=== PATIENT | female | born 1970 ===

== ENCOUNTER 2017-05-16 15:23 | Emergency (ER) | payer MEDICAID ==
[2017-05-16 15:29] VITALS: BP 128/85; PULSE 66; RESP 20; TEMP 97.7; O2SAT 99
[2017-05-16] MEDS ORDERED: Sodium Chloride 0.9% 1,000 ML IV STA ×2 (15:49→20:30)
--- NOTE | 2017-05-16 15:58 | ED PDOC ---
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 She did not pass out. Tried to go to the bathroom, but no improvement. She then called the ambulance. Feels better currently with only mild dizziness. No chest pain, palpitations. No numbness. No weakness anywhere. Has had similar in the past and saw pcp for it with no findings. Past Medical History Reviewed: Nursing Documentation, Vital Signs Vital Signs: Last Vital Signs Temp 97.7 F 05/16/17 15:25 Pulse 66 05/16/17 15:25 Resp 20 05/16/17 15:25 BP 128/85 05/16/17 15:25 Pulse Ox 99 05/16/17 15:25 - Medical History PMH: No Chronic Diseases - Surgical History Surgical History: No Surg Hx - Family History Family History: States: Unknown Family Hx - Living Arrangements Living Arrangements: With Family - Social History Current smoker - smoking cessation education provided: No Alcohol: None Drugs: Denies - Home Medications Home Medications: Ambulatory Orders Medication Instructions Recorded Azithromycin [Zithromax Z-Kam] 250 mg PO DAILY #5 tab 06/16/15 Ibuprofen [Motrin] 600 mg PO Q8 #30 tab 06/16/15 Oxycodone HCl/Acetaminophen 1 tab PO Q6 PRN #10 tab 06/16/15 [Percocet 325 mg-5 mg] Dicyclomine [Dicyclomine HCl] 10 mg PO TID PRN #9 cap 09/05/15 Loperamide [Loperamide HCl] 2 mg PO QID PRN #12 cap 09/05/15 Ondansetron [Zofran] 4 mg PO Q6H PRN #10 tab 09/05/15 Ranitidine HCl [Zantac 150] 150 mg PO BID #20 tab 09/05/15 - Allergies Allergies/Adverse Reactions: Allergies Allergy/AdvReac Type Severity Reaction Status Date / Time No Known Allergies Allergy Verified 06/16/15 19:25 Review of Systems ROS Statement: Except As Marked, All Systems Reviewed And Found Negative Respiratory: Positive for: Shortness of Breath Neurological: Positive for: Dizziness Physical Exam - Reviewed Nursing Documentation Reviewed: Yes Vital Signs Reviewed: Yes - Physical Exam Appears: Positive for: Non-toxic, No Acute Distress Head Exam: Positive for: ATRAUMATIC, NORMAL INSPECTION, NORMOCEPHALIC Skin: Positive for: Normal Color, Warm, DRY Eye Exam: Positive for: EOMI, Normal appearance, PERRL ENT: Positive for: Normal ENT Inspection Neck: Positive for: Normal, Painless ROM Cardiovascular/Chest: Positive for: Regular Rate, Rhythm Respiratory: Positive for: CNT, Normal Breath Sounds Gastrointestinal/Abdominal: Positive for: Normal Exam, Bowel Sounds, Soft. Negative for: Tenderness Back: Positive for: Normal Inspection. Negative for: L CVA Tenderness, R CVA Tenderness Extremity: Positive for: Normal ROM. 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 Negative for: Motor/Sensory Deficits, Aphasia, Facial Droop - ECG O2 Sat by Pulse Oximetry: 99 Pulse Ox Interpretation: Normal - Progress ED Course And Treament: 1625: Dr. Morin to take over care. FU on labs and imaging. Disposition - Clinical Impression Clinical Impression: Near syncope - Patient ED Disposition Is Patient to be Admitted: Transfer of Care - Disposition Disposition Time: 16:25 Condition: STABLE Patient Signed Over To: Corin Morin
[2017-05-16 16:32] LABS: BASO % 0.3 % (0.0-2.0); EOS # 0.2 K/uL (0.0-0.7); EOS % 1.7 % (0.0-4.0); HEMATOCRIT 43.6 % (34.0-47.0); LYMPH # 1.7 K/uL (1.0-4.3); LYMPH % 14.9 % (20.0-40.0); MEAN CELL VOLUME 89.1 fl (81.0-99.0); MEAN CORPUSCULAR HEMOGLOBIN 28.7 pg (27.0-31.0); MEAN CORPUSCULAR HGB CONC 32.2 g/dL (33.0-37.0); MEAN PLATELET VOLUME 8.5 fl (7.2-11.7); MONO # 0.6 K/uL (0.0-0.8); MONO % 5.2 % (0.0-10.0); NEUT # 9.1 K/uL (1.8-7.0); NEUT % 77.9 % (50.0-75.0); RED CELL DISTRIBUTION WIDTH 13.2 % (11.5-14.5); WHITE BLOOD COUNT 11.7 K/uL (4.8-10.8)
[2017-05-16 16:47] LABS: ALB/GLOB RATIO 1.2 (1.0-2.1); ALKALINE PHOSPHATASE 73 U/L (38-126); ALT/SGPT 40 U/L (9-52); AST/SGOT 25 U/L (14-36); BILIRUBIN,TOTAL 0.4 mg/dl (0.2-1.3); BLOOD UREA NITROGEN 14 mg/dl (7-17); CARBON DIOXIDE 27 mmol/L (22-30); CHLORIDE 107 mmol/L (98-107); GFR AFRICAN-AMERICAN > 60; GLUCOSE,RANDOM 131 mg/dL (65-105); LIPASE 658 U/L (23-300); POTASSIUM 4.3 MMOL/L (3.6-5.0); SODIUM 141 mmol/l (132-148); TOTAL PROTEIN 7.3 G/DL (6.3-8.2)
[2017-05-16] MEDS ORDERED: Iohexol 300 100 ML IJ ONE (16:56)
[2017-05-16] MEDS ORDERED: Sodium Chloride 0.9% 50 ML IV ONE ×2 (16:56→20:24)
--- NOTE | 2017-05-16 17:17 | CT ---
PROCEDURE: CT HEAD WITHOUT CONTRAST. HISTORY: dizzy COMPARISON: None available. TECHNIQUE: Axial computed tomography images were obtained through the head/brain without intravenous contrast. Radiation dose: Total exam DLP = 846.83 go mGy-cm. This CT exam was performed using one or more of the following dose reduction techniques: Automated exposure control, adjustment of the mA and/or kV according to patient size, and/or use of iterative reconstruction technique. FINDINGS: HEMORRHAGE: No intracranial hemorrhage. BRAIN: No mass effect or edema. The aquino-white matter differentiation appears intact. Please note that MRI with diffusion imaging is more sensitive in the detection of acute ischemic event. VENTRICLES: No hydrocephalus. CALVARIUM: Unremarkable. PARANASAL SINUSES: Unremarkable as visualized. No significant inflammatory changes. MASTOID AIR CELLS: Unremarkable as visualized. No inflammatory changes. OTHER FINDINGS: None. IMPRESSION: No acute intracranial pathology identified.
--- NOTE | 2017-05-16 17:28 | CT ---
PROCEDURE: CT Abdomen and Pelvis with contrast HISTORY: abd pain mild elevated lipase COMPARISON: None. TECHNIQUE: Contrast dose: 95 mL Omnipaque 300 Radiation dose: Total exam DLP = 1037.76 mGy-cm. This CT exam was performed using one or more of the following dose reduction techniques: Automated exposure control, adjustment of the mA and/or kV according to patient size, and/or use of iterative reconstruction technique. FINDINGS: LOWER THORAX: Unremarkable. LIVER: Unremarkable. No gross lesion or ductal dilatation. GALLBLADDER AND BILE DUCTS: Unremarkable. PANCREAS: Unremarkable. No gross lesion or ductal dilatation. No peripancreatic fluid or edema. SPLEEN: Unremarkable. ADRENALS: Unremarkable. No mass. KIDNEYS AND URETERS: Unremarkable. No hydronephrosis. No solid mass. VASCULATURE: Unremarkable. No aortic aneurysm. BOWEL: Unremarkable. No obstruction. No gross mural thickening. APPENDIX: Normal appendix. PERITONEUM: Unremarkable. No free fluid. No free air. LYMPH NODES: Unremarkable. No enlarged lymph nodes. BLADDER: Unremarkable. REPRODUCTIVE: Unremarkable uterus. BONES: No acute fracture. OTHER FINDINGS: None. IMPRESSION: Unremarkable examination. No evidence of acute pancreatitis.
--- NOTE | 2017-05-16 18:20 | ED PDOC ---
- Laboratory Results Result Diagrams: 05/16/17 16:25 05/16/17 16:25 - ECG O2 Sat by Pulse Oximetry: 99 Medical Decision Making Medical Decision Making: Accession No. : [id number] Patient Name / ID : YASMEEN COWAN BRIANDA / [id number] Exam Date : 05/16/2017 16:47:52 ( Approved ) Study Comment : Sex / Age : F / 47Y Creator : Carine Olvera MD Dictator : Carine Olvera MD Pen Tester : Manager Of International : Carine Olvera MD Approver2 : Report Date : 05/16/2017 17:15:28 My Comment : PROCEDURE: CT HEAD WITHOUT CONTRAST. HISTORY: dizzy COMPARISON: None available. TECHNIQUE: Axial computed tomography images were obtained through the head/brain without intravenous contrast. Radiation dose: Total exam DLP = 846.83 go mGy-cm. This CT exam was performed using one or more of the following dose reduction techniques: Automated exposure control, adjustment of the mA and/or kV according to patient size, and/or use of iterative reconstruction technique. FINDINGS: HEMORRHAGE: No intracranial hemorrhage. BRAIN: No mass effect or edema. The aquino-white matter differentiation appears intact. Please note that MRI with diffusion imaging is more sensitive in the detection of acute ischemic event. VENTRICLES: No hydrocephalus. CALVARIUM: Unremarkable. PARANASAL SINUSES: Unremarkable as visualized. No significant inflammatory changes. MASTOID AIR CELLS: Unremarkable as visualized. No inflammatory changes. OTHER FINDINGS: None. IMPRESSION: No acute intracranial pathology identified. Accession No. : [id number] Patient Name / ID : YASMEEN COWAN BRIANDA / [id number] Exam Date : 05/16/2017 17:03:47 ( Approved ) Study Comment : Sex / Age : F / 47Y Creator : Eder Coleman MD Dictator : Eder Coleman MD Pen Tester : Manager Of International : Eder Coleman MD Approver2 : Report Date : 05/16/2017 17:26:56 My Comment : PROCEDURE: CT Abdomen and Pelvis with contrast HISTORY: abd pain mild elevated lipase COMPARISON: None. TECHNIQUE: Contrast dose: 95 mL Omnipaque 300 Radiation dose: Total exam DLP = 1037.76 mGy-cm. This CT exam was performed using one or more of the following dose reduction techniques: Automated exposure control, adjustment of the mA and/or kV according to patient size, and/or use of iterative reconstruction technique. FINDINGS: LOWER THORAX: Unremarkable. LIVER: Unremarkable. No gross lesion or ductal dilatation. GALLBLADDER AND BILE DUCTS: Unremarkable. PANCREAS: Unremarkable. No gross lesion or ductal dilatation. No peripancreatic fluid or edema. SPLEEN: Unremarkable. ADRENALS: Unremarkable. No mass. KIDNEYS AND URETERS: Unremarkable. No hydronephrosis. No solid mass. VASCULATURE: Unremarkable. No aortic aneurysm. BOWEL: Unremarkable. No obstruction. No gross mural thickening. APPENDIX: Normal appendix. PERITONEUM: Unremarkable. No free fluid. No free air. LYMPH NODES: Unremarkable. No enlarged lymph nodes. BLADDER: Unremarkable. REPRODUCTIVE: Unremarkable uterus. BONES: No acute fracture. OTHER FINDINGS: None. IMPRESSION: Unremarkable examination. No evidence of acute pancreatitis. Disposition - Clinical Impression Clinical Impression: Near syncope, Elevated lipase - Disposition Referrals: [facility] [Outside] Disposition: Transfer of Care (to Dr. Clay) Disposition Time: 19:00 Condition: STABLE Instructions: Near Syncope (ED) Forms: [email or web address] (Samoan) Addendum Addendum: 05/16/17 17:00 Pt signed out by Dr. Barnett pending labs and CT.
--- NOTE | 2017-05-16 19:41 | ED PDOC ---
- Laboratory Results Result Diagrams: 05/16/17 16:25 05/16/17 16:25 - ECG O2 Sat by Pulse Oximetry: 99 Medical Decision Making Medical Decision Making: Time: 1899 --Patient endorsed from Dr. Morin to me. --pending D Dimer results Time: 1845 --D-Dimer Quantitative: 6822 (H) Time: 1951 -Angio Chest PE Protocol CT Time: 2117 --Chest Ct FINDINGS: Pulmonary arteries: No pulmonary embolism. Aorta: No aneurysm. No dissection. Lungs: No consolidation. Few pulmonary nodules, up to 0.3 cm. Pleural space: No significant effusion. No pneumothorax. Heart: No cardiomegaly. No significant pericardial effusion. Bones/joints: No acute fracture. No dislocation. Soft tissues: Unremarkable. Lymph nodes: No pathologically enlarged lymph nodes. IMPRESSION: 1. No CT evidence of pulmonary embolism. 2. Pulmonary nodules. For low-risk patients, no follow-up is necessary. For high-risk patients (smoking history or other known risk factors) an optional CT at 12 months could be performed. Time: 21:46 --Patient is aware of pulmonary nodules and need for follow up. --Patient can go home as near syncope follow up with primary care doctor Patient is medically stable, and requires no further treatment in the ED at this time. Patient will be discharged home. Counseling was provided and all questions were answered regarding diagnosis and need for follow up with primary care doctor. There is agreement to discharge plan. Return if symptoms persist or worsen. Clinical Impression: Near syncope and elevated lipase Scribe Attestation: Documented by Hodan Dc, acting as a scribe for Elsy Clay MD. Provider Scribe Attestation: All medical record entries made by the Scribe were at my direction and personally dictated by me. I have reviewed the chart and agree that the record accurately reflects my personal performance of the history, physical exam, medical decision making, and the department course for this patient. I have also personally directed, reviewed, and agree with the discharge instructions and disposition. Disposition Counseled Patient/Family Regarding: Studies Performed, Diagnosis, Need For Followup - Clinical Impression Clinical Impression: Near syncope, Elevated lipase - POA Present On Arrival: None - Disposition Referrals: [facility] [Outside] Disposition: Routine/Home Disposition Time: 21:46 Condition: IMPROVED Additional Instructions: follow up with your primary doctor in 1-2 days return to the ED with any worsening or concerning symptoms follow up for pulmonary nodules with your primary doctor Instructions: Near Syncope (ED), Pulmonary Nodules (ED) Forms: [employer] (Argentine)
[2017-05-16] MEDS ORDERED: Iodixanol 320 MG/ML 100 ML BOTTLE IV ONE (20:24)
--- NOTE | 2017-05-16 21:18 | CT ---
EXAM: CT Angiography Chest With Intravenous Contrast CLINICAL HISTORY: 47 years old, female; Signs and symptoms; Dyspnea; Additional info: Elevated ddimer. Sent phy. Doc. TECHNIQUE: Axial computed tomographic angiography images of the chest with intravenous contrast using pulmonary embolism protocol. All CT scans at this facility use one or more dose reduction techniques, viz.: automated exposure control; ma/kV adjustment per patient size (including targeted exams where dose is matched to indication; i.e. head); or iterative reconstruction technique. MIP reconstructed images were created and reviewed. Coronal and sagittal reformatted images were created and reviewed. CONTRAST: 95 mL of [id number] administered intravenously. COMPARISON: No relevant prior studies available. FINDINGS: Pulmonary arteries: No pulmonary embolism. Aorta: No aneurysm. No dissection. Lungs: No consolidation. Few pulmonary nodules, up to 0.3 cm. Pleural space: No significant effusion. No pneumothorax. Heart: No cardiomegaly. No significant pericardial effusion. Bones/joints: No acute fracture. No dislocation. Soft tissues: Unremarkable. Lymph nodes: No pathologically enlarged lymph nodes. IMPRESSION: 1. No CT evidence of pulmonary embolism. 2. Pulmonary nodules. For low-risk patients, no follow-up is necessary. For high-risk patients (smoking history or other known risk factors) an optional CT at 12 months could be performed.
--- NOTE | 2017-05-17 07:45 | CARD ---
APPROVED REPORT EKG Measurement Heart [id number] <Conclusion> Normal sinus rhythm Incomplete right bundle branch block Borderline ECG
== END 2017-05-16 22:00 | disposition home or self-care (01) ==
LOC: H.ER 15:23
DX: R55 Syncope and collapse (principal); R79.1 Abnormal coagulation profile
CPT/HCPCS: 70450; 71275; 74177; 80053; 81025; 83690; 84484; 85025; 85378; 93005; 96374; 99285; J7040; Q9967

== ENCOUNTER 2018-01-05 18:20 | Emergency (ER) | payer MEDICAID ==
[2018-01-05 18:48] VITALS: BP 119/81; PULSE 71; RESP 18; TEMP 98.4; O2SAT 100
[2018-01-05] MEDS ORDERED: Tdap Vaccine 0.5 ml Vial (10-64 yrs) IM ONE ×2 (19:20→20:04)
[2018-01-05] MEDS ORDERED: PROPARACAINE/FLUORESCEIN SOD 100 DROP/5 ML BOTTLE OS STA (19:20)
[2018-01-05] MEDS ORDERED: Naproxen 500 MG TAB PO STA (19:20)
--- NOTE | 2018-01-05 19:43 | ED PDOC ---
HPI: General Adult Time Seen by Provider: 01/05/18 18:52 Chief Complaint (Nursing): Eye Problem Chief Complaint (Provider): Left Eye Discomfort, Right Foot Pain History Per: Patient History/Exam Limitations: no limitations Onset/Duration Of Symptoms: Days (x1 week) Current Symptoms Are (Timing): Still Present Additional Complaint(s): 47 year old female presents to the ED for evaluation of right foot pain onset one week. Patient states she feels the pain at the bottom of her heel, worsening when she takes a step or applies direct pressure. She reports it was initially intermittent but over the last few days, it has been constant. Denies taking any medications today, but says she has been taking Ibuprofen with some relief. Otherwise, (-) history of foot injury, (-) falls, (-) trauma, (-) calf tenderness, (-) pedal edema, (-) shortness of breath, (-) chest pain, (-) fever , (-) chills, (-) recent travel, (-) recent prolonged immobility. Patient is also reporting left eye discomfort since last night, describing it as if there are grains stuck in her eye, associated with crusting this morning and mild itching. She also notes increased redness since onset. Otherwise, (-) changes in vision, (-) sick contact. Of note, patient wears glasses and contacts , but has not worn her contacts in months. Tetanus not up to date. LNMP: currently PMD: Roge Past Medical History Reviewed: Historical Data, Nursing Documentation, Vital Signs Vital Signs: Last Vital Signs Temp 98.4 F 01/05/18 18:44 Pulse 71 01/05/18 18:44 Resp 18 01/05/18 18:44 BP 119/81 01/05/18 18:44 Pulse Ox 100 01/05/18 21:07 - Medical History PMH: Depression Denies: Chronic Kidney Disease - Surgical History Surgical History: No Surg Hx - Family History Family History: States: Unknown Family Hx - Immunization History Hx Tetanus Toxoid Vaccination: No - Home Medications Home Medications: Ambulatory Orders Medication Instructions Recorded Ondansetron ODT [Zofran ODT] 4 mg PO Q8 PRN #20 odt 06/14/17 Naproxen 500 mg PO BID PRN #20 tab 01/05/18 Tobramycin 0.3% [Tobrex 0.3% Ophth 1 drop OS Q6 #1 bottle 01/05/18 Michael] - Allergies Allergies/Adverse Reactions: Allergies Allergy/AdvReac Type Severity Reaction Status Date / Time No Known Allergies Allergy Verified 01/05/18 18:44 Review of Systems ROS Statement: Except As Marked, All Systems Reviewed And Found Negative Constitutional: Negative for: Fever, Chills Eyes: Positive for: Redness, Other (left eye discomfort, with crusting and mild itching). Negative for: Vision Change Cardiovascular: Negative for: Chest Pain Respiratory: Negative for: Shortness of Breath Musculoskeletal: Positive for: Foot Pain (right, bottom of heel, worse when walking / with direct pressure). Negative for: Other (pedal edema or calf tenderness) Physical Exam - Reviewed Nursing Documentation Reviewed: Yes Vital Signs Reviewed: Yes - Physical Exam Comments: GENERAL APPEARANCE: Patient is awake, alert, oriented x 3, in no acute distress. Resting comfortably. HEENT: (-) facial swelling and erythema, (-) facial blisters, (-) periorbital tenderness or swelling. TMs: bilateral (-) bulging, (-) erythematous. Nares: patent, (-) rhinorrhea. Pharynx: Clear; (-) erythema, (-) exudates, (-) hypertrophy. Uvula midline. VISUAL ACUITIES: Left eye: 20/ 15 ; Right eye: 20/ 15. LIDS & LASHES: Normal. No crusting noted. No discharge to medial and lateral canthus. PUPILS: Pupils equal round and reactive. EOM's: Intact. Painless. LID EVERSION: (-) foreign body. CONJUNCTIVAE: (+) conjunctival injection to left eye. (-) chemosis. CORNEA: (-) infiltrate. ANTERIOR CHAMBER: (-) foreign body (-) hyphema. FUNDUSCOPIC: (-) foreign body, (-) hemorrhage. FLUORESCEIN: (+) 2mm x 2 mm area of uptake at the 4 oclock position of left eye CHEST AND RESPIRATORY: (-) wheezing, (-) rales, (-) rhonchi, (-) wheezes; breath equal bilaterally. HEART AND CARDIOVASCULAR: (-) irregularity; (-) murmur, (-) gallop. ABDOMEN AND GI: Soft; (-) tenderness; (-) distention, (-) guarding; (-) palpable mass. RIGHT LOWER EXTREMITY: FOOT: (+) diffuse tenderness to plantar aspect of mid foot and hind foot, (-) swelling, (-) erythema, (-) warmth, (-) skin break. (-) calf tenderness, (-) palpable cord. Full ROM. Sensation and capillary refill intact. Remainder of lower extremity: non tender, full ROM. NEURO AND PSYCH: Mental status as above. - ECG O2 Sat by Pulse Oximetry: 100 (RA) Pulse Ox Interpretation: Normal Medical Decision Making Medical Decision Making: Time: 1919 Initial Impression: eye irritation, probable conjunctivitis; acute foot pain, likely plantar fasciitis Initial Plan: --Visual acuity --Tetanus booster --Fluorescein 1 drop --Naproxen 500 mg PO --Right foot XR 2020 Foot XR: no fracture, no dislocation, as read by ALEXANDER. Patient notified a Radiologist will review the ED reading if any change in treatment is needed we will contact you. 2044 In light of fluorescein results, tobramycin ophthalmic ordered. 2099 On re-evaluation, patient reports improvement of symptoms. On exam, patient remains AAOx3, in no acute distress. On exam, neck is supple, lungs CTA, cardiac RRR, abdomen is soft and non-tender, neuro exam shows no focal findings. VSS, stable for discharge. Diagnostic results d/w the patient in great detail. Dx of corneal abrasion, conjunctivitis, acute foot pain, plantar fasciitis d/w the patient. Based on history, exam and diagnostic results plan will be for discharge and outpatient follow up. Advised to follow up with primary care physician/ophtho/podiatry in 1-2 days without fail. Advised to take medication as prescribed. Return to the emergency room at any time for any new or worsening symptoms. Patient states she fully agrees with and understands discharge instructions. States that she agrees with the plan and disposition. Verbalized and repeated discharge instructions and plan. I have given the patient opportunity to ask any additional questions. ---- Scribe Attestation: Documented by Avelina Bailey, acting as a scribe for Dorene Maldonado PA-C. Provider Scribe Attestation: All medical record entries made by the Scribe were at my direction and personally dictated by me. I have reviewed the chart and agree that the record accurately reflects my personal performance of the history, physical exam, medical decision making, and the department course for this patient. I have also personally directed, reviewed, and agree with the discharge instructions and disposition. Disposition - Clinical Impression Clinical Impression: Plantar fasciitis, Bacterial conjunctivitis of left eye, Acute foot pain, Corneal abrasion - Patient ED Disposition Is Patient to be Admitted: No Counseled Patient/Family Regarding: Studies Performed, Diagnosis, Need For Followup, Rx Given - Disposition Referrals: [facility] [Outside] Miguel Leslie MD [Staff Provider] - Jared Chew DPM [Staff Provider] - Disposition: Routine/Home Disposition Time: 21:04 Condition: STABLE Additional Instructions: FOLLOW UP WITH OPHTHO/PODIATRY/PMD FOR FURTHER EVALUATION. RETURN TO ED WITH ANY NEW OR WORSENING SYMPTOMS. TAKE MEDICATION PRESCRIBED. Prescriptions: Naproxen 500 mg PO BID PRN #20 tab PRN Reason: Pain, Moderate (4-7) Tobramycin 0.3% [Tobrex 0.3% Ophth Soln] 1 drop OS Q6 #1 bottle Instructions: Heel Pain (Caused by Plantar Fasciitis) (DC), Conjunctivitis ( [place]key[place]), Corneal Abrasion (DC), Plantar Fasciitis Exercises Forms: [employer] (Turkmen) Print Language: MOHAWK - POA Present On Arrival: None
[2018-01-05] MEDS ORDERED: Naproxen 500 MG TAB PO ONE (20:03)
[2018-01-05] MEDS ORDERED: PROPARACAINE/FLUORESCEIN SOD 100 DROP/5 ML BOTTLE ONE (20:04)
[2018-01-05] MEDS ORDERED: Tobramycin 0.3% OPHT SOLN OS ONE (20:47)
--- NOTE | 2018-01-06 10:05 | RAD ---
Date of service: 01/05/2018 PROCEDURE: Right Foot Radiographs. HISTORY: foot pain COMPARISON: None. FINDINGS: BONES: Normal. No fracture. JOINTS: Minor hallux valgus deformity. SOFT TISSUES: Normal. OTHER FINDINGS: None. IMPRESSION: No evidence of acute displaced fracture nor dislocation.
== END 2018-01-05 22:14 | disposition home or self-care (01) ==
LOC: H.ER 18:20
DX: M72.2 Plantar fascial fibromatosis (principal); H10.89 Other conjunctivitis; M79.671 Pain in right foot; S05.02XA Injury of conjunctiva and corneal abrasion without foreign body, left eye, initial encounter; X58.XXXA Exposure to other specified factors, initial encounter; Y92.9 Unspecified place or not applicable; Z23 Encounter for immunization

== ENCOUNTER 2018-01-15 11:37 | Emergency (ER) | payer MEDICAID ==
[2018-01-15 11:44] VITALS: BP 126/63; PULSE 68; RESP 18; TEMP 98.1; O2SAT 97
--- NOTE | 2018-01-15 12:26 | ED PDOC ---
HPI: Eye Injury/Pain Time Seen by Provider: 01/15/18 11:50 Chief Complaint (Nursing): Eye Problem Chief Complaint (Provider): Left Eye Pain History Per: Patient History/Exam Limitations: no limitations Onset/Duration Of Symptoms: Days Current Symptoms Are (Timing): Still Present Quality: "Pain" Associated Symptoms: Decreased Vision, Discharge From Eye. denies: Itching Additional Complaint(s): 47 year old female presents to the ED for an evaluation of her left eye. Patient states she was seen in the ED for the same complaint about one and half week ago. She tried to make an appointment with her eye doctor but was referred to the ED stating that she had a medical problem. She reports of a stabbing pain in her left eye for the past 2 weeks and she cannot look directly at the light. Also has yellow discharge and white film at the bottom of the eye. Denies any itchiness. Pt taking tobamycin. PMD: Tatiana Mireles Past Medical History Reviewed: Historical Data, Nursing Documentation, Vital Signs Vital Signs: Last Vital Signs Temp 98.1 F 01/15/18 11:43 Pulse 68 01/15/18 11:43 Resp 18 01/15/18 11:43 BP 126/63 01/15/18 11:43 Pulse Ox 97 01/15/18 11:43 - Medical History PMH: Depression Denies: Chronic Kidney Disease - Family History Family History: States: Unknown Family Hx - Immunization History Hx Tetanus Toxoid Vaccination: No - Home Medications Home Medications: Ambulatory Orders Medication Instructions Recorded Ondansetron ODT [Zofran ODT] 4 mg PO Q8 PRN #20 odt 06/14/17 Naproxen 500 mg PO BID PRN #20 tab 01/05/18 Tobramycin 0.3% [Tobrex 0.3% Ophth 1 drop OS Q6 #1 bottle 01/05/18 Soln] Gentamicin 0.1% 0.1 / TP BID #1 tube 01/15/18 - Allergies Allergies/Adverse Reactions: Allergies Allergy/AdvReac Type Severity Reaction Status Date / Time No Known Allergies Allergy Verified 01/05/18 18:44 Review of Systems ROS Statement: Except As Marked, All Systems Reviewed And Found Negative Eyes: Positive for: Pain, Vision Change, Redness Physical Exam - Reviewed Nursing Documentation Reviewed: Yes Vital Signs Reviewed: Yes - Physical Exam Appears: Positive for: Non-toxic Head Exam: Positive for: ATRAUMATIC, NORMAL INSPECTION, NORMOCEPHALIC Skin: Positive for: Normal Color, Warm, Dry. Negative for: Rash Eye Exam: Positive for: EOMI, PERRL, Conjunctival injection, Other ((+) white area seen on lower edge of cornea, 2 mm extending from 6 -8 0'clock; same area with uptake seen under black light. ). Negative for: Normal appearance Cardiovascular/Chest: Negative for: Bradycardia, Tachycardia Respiratory: Negative for: Accessory Muscle Use, Respiratory Distress Extremity: Positive for: Normal ROM Neurologic/Psych: Positive for: Alert, Oriented - ECG O2 Sat by Pulse Oximetry: 97 (RA) Pulse Ox Interpretation: Normal Medical Decision Making Medical Decision Making: Time: 1233 Initial Plan: --Flucaine Eye Drops 1 drop OS Pt states she called her eye doctor but he states she needs to see a medical inventory specialist manager and patient did not understand what he meant so she returned to ER. Pt states the symptoms are not worse but not improving. Discussed the importance of f/u with Dr. Leslie. Scribe Attestation: Documented by Maris Albarran, acting as a scribe for Jasmyn Ureña PA-C. Provider Scribe Attestation: All medical record entries made by the Scribe were at my direction and personally dictated by me. I have reviewed the chart and agree that the record accurately reflects my personal performance of the history, physical exam, medical decision making, and the department course for this patient. I have also personally directed, reviewed, and agree with the discharge instructions and disposition. Disposition - Clinical Impression Clinical Impression: Corneal abrasion - Patient ED Disposition Is Patient to be Admitted: No Counseled Patient/Family Regarding: Diagnosis, Need For Followup - Disposition Referrals: Miguel Leslie MD [Staff Provider] - Disposition: Routine/Home Disposition Time: 12:32 Condition: GOOD Additional Instructions: BRIANDA Edith YASMEEN COWAN, thank you for letting us take care of you today. Your provider was Elsy Clay MD and you were treated for LT EYE PAIN. The emergency medical care you received today was directed at your acute symptoms. If you were prescribed any medication, please fill it and take as directed. It may take several days for your symptoms to resolve. Return to the Emergency Department if your symptoms worsen, do not improve, or if you have any other problems. Please contact your doctor or call one of the physicians/clinics you have been referred to that are listed on the Patient Visit Information form that is included in your discharge packet. Bring any paperwork you were given at discharge with you along with any medications you are taking to your follow up visit. Our treatment cannot replace ongoing medical care by a primary care provider outside of the emergency department. Thank you for allowing the [facility] team to be part of your care today. If you had an X-Ray or CT scan: A Radiologist will review the ED reading if any change in treatment is needed we will contact you. If you had a blood, urine, or wound culture: It will take several days for the results, if any change in treatment is needed we will contact you. If you had an STI test: It will take 48 hours for the results. Please call after 1 week if you have not heard back. Prescriptions: Gentamicin 0.1% 0.1 / TP BID #1 tube Instructions: Corneal Abrasion Forms: [facility] ([employer]ajik)
[2018-01-15] MEDS ORDERED: PROPARACAINE/FLUORESCEIN SOD 100 DROP/5 ML BOTTLE OS STA (12:33)
[2018-01-15] MEDS ORDERED: PROPARACAINE/FLUORESCEIN SOD 100 DROP/5 ML BOTTLE ONE (12:44)
== END 2018-01-15 13:03 | disposition home or self-care (01) ==
LOC: H.ER 11:37
DX: S05.02XA Injury of conjunctiva and corneal abrasion without foreign body, left eye, initial encounter (principal); Z86.59 Personal history of other mental and behavioral disorders